=== PATIENT | female | born 2000 | race Caucasian/White ===

== ENCOUNTER 2025-06-19 14:14 | Outpatient (CLI) | payer OTHER | END 2025-06-19 14:15 | disposition home or self-care (01) | LOC: SCSRAD 14:14 | PROVIDERS: ATTEND Nurse Practitioner Family | DX: S69.91XA Unspecified injury of right wrist, hand and finger(s), initial encounter (principal); S62.306A Unspecified fracture of fifth metacarpal bone, right hand, initial encounter for closed fracture ==